=== PATIENT | female | born 1955 | race Caucasian/White ===

== ENCOUNTER → 2024-02-02 | Outpatient (CLI) | payer BC, SELFPAY ==
[2024-02-02 15:22] LABS: Absolute Neutrophil Count 5.9 X10^3/uL (2.0-7.7); Basophil# 0.07 X10^3/uL; Basophil% 0.7 % (0-1); Eosinophil# 0.16 X10^3/uL; Eosinophils% 1.7 % (0-5); Hematocrit 42.6 % (37-47); Hemoglobin 13.8 g/dL (12.0-15.0); Mean Corp Hgb Conc 32.4 g/dL (32-36); Mean Corpuscular Hgb 30.8 pg (27.0-32.0); Mean Corpuscular Volume 95.1 fL (81-99); Mean Platelet Vol. 11.7 fl (6.2-12.0); Monocyte# 0.76 X10^3/uL; Monocyte% 7.9 % (0-10); NRBC Flagged by Analyzer 0 % (0-5); Neutrophil # 5.91 X10^3/uL (2.7-7.7); Neutrophil % 61.3 % (47-70); Platelet Count 247 K/mm3 (150-450); RBC Distribution Width CV 12.6 % (11.6-14.6); Red Blood Count 4.48 M/mm3 (4.2-5.4); White Blood Count 9.6 K/mm3 (4.4-11.0)
[2024-02-02 16:27] LABS: ALB/GLOB Ratio 1.1 RATIO (0.9-2.4); AST(SGOT) 24 U/L (15-37); Alanine Aminotransfer ALT/SGPT 34 U/L (13-56); Alkaline Phosphatase 121 U/L (45-117); Anion Gap 3 (5-15); BUN 17 mg/dL (7-18); BUN/Creat Ratio 19.1 RATIO (10-20); Calcium,Total 9.5 mg/dL (8.5-10.1); Chloride 106 mmol/L (98-107); Cholesterol 236 mg/dL (200); Creatinine, Serum 0.89 mg/dL (0.55-1.02); EST Glomerular Filtration Rate 67 mL/min (>60); Est Glom Filt Rate - Afr Amer 81 mL/min (>60); Globulin 3.6 g/dL (2.2-4.2); Glucose 86 mg/dL (74-106); High Density Lipoprotein 74 mg/dL; Potassium 5.4 mmol/L (3.5-5.1); Protein, Total 7.6 g/dL (6.4-8.2); Sodium Level 138 mmol/L (136-145); T4 Free Direct 1.03 ng/dL (0.76-1.46); Thyroid Stim Hormone (TSH) 2.19 uIU/mL (0.358-3.74); Triglycerides 115 mg/dL; Very Low Density Lipoprotein 23 mg/dL (5-40)
== END | disposition home or self-care (01) ==
LOC: BIMLAB 14:08
PROVIDERS: PCP Internal Medicine; Visit Provider Internal Medicine
DX: I10 Essential (primary) hypertension (principal); K52.9 Noninfective gastroenteritis and colitis, unspecified
CPT/HCPCS: 36415; 80053; 80061; 84439; 84443; 85025

== ENCOUNTER → 2024-07-02 | Outpatient (CLI) | payer BC, SELFPAY ==
[2024-07-02 15:24] LABS: QC Malaria Lot#/Exp Date RECORD LOT#/EXP DATE
[2024-07-02 16:52] LABS: Absolute Lymphocyte Count 2.75 X10^3/uL (0.83-4.51); Absolute Neutrophil Count 7.6 X10^3/uL (2.0-7.7); Basophil# 0.08 X10^3/uL; Basophil% 0.7 % (0-1); Eosinophil# 0.07 X10^3/uL; Eosinophils% 0.6 % (0-5); Hematocrit 43.7 % (37-47); Hemoglobin 13.9 g/dL (12.0-15.0); Lymphocyte # 2.75 X10^3/ul (0.83-4.51); Lymphocyte % 23.7 % (19-41); Mean Corp Hgb Conc 31.8 g/dL (32-36); Mean Corpuscular Hgb 29.2 pg (27.0-32.0); Mean Corpuscular Volume 91.8 fL (81-99); Mean Platelet Vol. 12.2 fl (6.2-12.0); Monocyte# 0.95 X10^3/uL; Monocyte% 8.2 % (0-10); NRBC Flagged by Analyzer 0 % (0-5); Neutrophil # 7.57 X10^3/uL (2.7-7.7); Neutrophil % 65.1 % (47-70); Platelet Count 293 K/mm3 (150-450); RBC Distribution Width CV 13.2 % (11.6-14.6); RBC Distribution Width SD 44.9 fl (35.1-43.9); Red Blood Count 4.76 M/mm3 (4.2-5.4); White Blood Count 11.6 K/mm3 (4.4-11.0)
[2024-07-02 17:09] LABS: AST(SGOT) 32 U/L (15-37); Alanine Aminotransfer ALT/SGPT 50 U/L (13-56); Albumin, Serum 3.5 g/dL (3.2-5.0); Alkaline Phosphatase 135 U/L (45-117); Anion Gap 5 (5-15); BUN 14 mg/dL (7-18); BUN/Creat Ratio 16.8 RATIO (10-20); Calcium,Total 9.3 mg/dL (8.5-10.1); Chloride 114 mmol/L (98-107); Creatinine, Serum 0.83 mg/dL (0.55-1.02); EST Glomerular Filtration Rate 72 mL/min (>60); Est Glom Filt Rate - Afr Amer 87 mL/min (>60); Globulin 3.5 g/dL (2.2-4.2); Glucose 107 mg/dL (74-106); Sodium Level 141 mmol/L (136-145)
[2024-07-05 11:20] LABS: Pathologist Review Reviewed
[2024-07-05 14:08] LABS: Giardia Lamblia, Stool EIA Positive (Negative)
[2024-07-08 14:24] LABS: Malaria QC Review PASSED
== END | disposition home or self-care (01) ==
LOC: BIMLAB 15:22
PROVIDERS: PCP Internal Medicine; Referring Provider Nurse Practitioner; Visit Provider Nurse Practitioner
DX: R19.7 Diarrhea, unspecified (principal); K58.9 Irritable bowel syndrome, unspecified
CPT/HCPCS: 36415; 80053; 85025; 87207; 87329; 87493; 87506

== ENCOUNTER → 2024-07-29 | Outpatient (CLI) | payer BC, SELFPAY ==
[2024-07-29 17:14] LABS: Absolute Lymphocyte Count 2.69 X10^3/uL (0.83-4.51); Absolute Neutrophil Count 4.3 X10^3/uL (2.0-7.7); Basophil# 0.05 X10^3/uL; Basophil% 0.6 % (0-1); Eosinophil# 0.12 X10^3/uL; Eosinophils% 1.5 % (0-5); Hematocrit 41.6 % (37-47); Lymphocyte # 2.69 X10^3/ul (0.83-4.51); Lymphocyte % 34.1 % (19-41); Mean Corp Hgb Conc 31.3 g/dL (32-36); Mean Corpuscular Hgb 29.3 pg (27.0-32.0); Mean Corpuscular Volume 93.7 fL (81-99); Mean Platelet Vol. 12.1 fl (6.2-12.0); Monocyte# 0.77 X10^3/uL; Monocyte% 9.7 % (0-10); NRBC Flagged by Analyzer 0 % (0-5); Neutrophil # 4.25 X10^3/uL (2.7-7.7); Neutrophil % 53.8 % (47-70); Platelet Count 253 K/mm3 (150-450); RBC Distribution Width CV 13.5 % (11.6-14.6); RBC Distribution Width SD 46.2 fl (35.1-43.9); Red Blood Count 4.44 M/mm3 (4.2-5.4); White Blood Count 7.9 K/mm3 (4.4-11.0)
[2024-07-29 17:39] LABS: ALB/GLOB Ratio 1.1 RATIO (0.9-2.4); AST(SGOT) 26 U/L (15-37); Alanine Aminotransfer ALT/SGPT 37 U/L (13-56); Albumin, Serum 3.9 g/dL (3.2-5.0); Alkaline Phosphatase 107 U/L (45-117); Anion Gap 5 (5-15); BUN 18 mg/dL (7-18); BUN/Creat Ratio 23.7 RATIO (10-20); Calcium,Total 9.5 mg/dL (8.5-10.1); Chloride 108 mmol/L (98-107); Cholesterol 192 mg/dL (200); Creatinine, Serum 0.76 mg/dL (0.55-1.02); EST Glomerular Filtration Rate 80 mL/min (>60); Est Glom Filt Rate - Afr Amer 97 mL/min (>60); Globulin 3.4 g/dL (2.2-4.2); Glucose 90 mg/dL (74-106); High Density Lipoprotein 68 mg/dL; Potassium 3.8 mmol/L (3.5-5.1); Protein, Total 7.3 g/dL (6.4-8.2); Sodium Level 140 mmol/L (136-145); Triglycerides 119 mg/dL; Very Low Density Lipoprotein 24 mg/dL (5-40)
== END | disposition home or self-care (01) ==
LOC: BIMLAB 14:47
PROVIDERS: PCP Internal Medicine; Referring Provider Internal Medicine; Visit Provider Internal Medicine
DX: I10 Essential (primary) hypertension (principal); R19.7 Diarrhea, unspecified; A07.1 Giardiasis [lambliasis]
CPT/HCPCS: 36415; 80053; 80061; 85025

== ENCOUNTER → 2024-07-30 | Outpatient (CLI) | payer BC, SELFPAY ==
[2024-08-03 16:10] LABS: Calprotectin, Stool 19 ug/g (0-120)
== END | disposition home or self-care (01) ==
LOC: LABSPEC 13:21
PROVIDERS: PCP Internal Medicine; Referring Provider Internal Medicine; Visit Provider Internal Medicine
DX: K58.9 Irritable bowel syndrome, unspecified (principal); R19.7 Diarrhea, unspecified
CPT/HCPCS: 83630; 83993; 87177; 87209; 87329; 87506

== ENCOUNTER → 2025-06-10 | Outpatient (CLI) | payer BC, SELFPAY ==
[2025-06-10 16:05] LABS: Mucous, Urine 0 SEEN /hpf (<or=2+)
[2025-06-10 16:46] LABS: Color, Urine Yellow (Yellow); Glucose, Dipstick Normal (Normal); Ketone-Dipstick Negative (Negative); Leukocyte Esterase-Dipstick 25 /ul (Negative); Nitrite-Dipstick Negative (Negative); Occult Blood-Urine Negative /ul (Negative); Protein-Dipstick 30 mg/dl (Negative); Specific Gravity, Urine 1.025 (1.002-1.030); Urine Bilirubin Dipstick Negative (Negative)
[2025-06-10 17:58] LABS: Red Blood Cells-Urine 0-5 SEEN /hpf (0-5); Squamous Epithelial Cells - UA 0-5 SEEN /hpf (5-10)
--- OUTSIDE RECORDS SUMMARY | 2025-06-10 18:05 | XMS RPT_ITS | CCD ---
Author Organization [facility] Care Team Providers Care Cloth Mercerizer Back Tender Name Role Phone Dr. Kindra Jimenez Primary Care Provider [phone] Dr. Kindra Jimenez Attending Provider [phone] Dr. Kindra Jimenez Referring Provider [phone] Oleghe, Efewongbe Referring Unavailable Oleghe, Efewongbe Primary Care Unavailable Oleghe, Efewongbe Attending Unavailable Oleghe, Efewongbe Referring Unavailable Oleghe, Efewongbe Primary Care Unavailable Oleghe, Efewongbe Attending Unavailable Oleghe, Efewongbe Referring Unavailable Ferullo, Zoe Attending Unavailable Oleghe, Efewongbe Primary Care Unavailable Oleghe, Efewongbe Primary Care Unavailable Oleghe, Efewongbe Referring Unavailable Oleghe, Efewongbe Attending Unavailable Oleghe, Efewongbe Referring Unavailable Oleghe, Efewongbe Primary Care Unavailable Dave Saez Attending Unavailable Oleghe, Efewongbe Attending Unavailable Oleghe, Efewongbe Primary Care Unavailable Oleghe, Efewongbe Referring Unavailable Oleghe, Efewongbe Referring Unavailable Oleghe, Efewongbe Attending Unavailable Oleghe, Efewongbe Primary Care Unavailable Ferullo, Zoe Referring Unavailable Ferullo, Zoe Attending Unavailable Oleghe, Efewongbe Primary Care Unavailable Oleghe, Efewongbe Referring Unavailable Oleghe, Efewongbe Attending Unavailable Oleghe, Efewongbe Primary Care Unavailable Luisghe Dr. Kindra HOFF Primary Care Provider Dr. Kindra Jimenez MD Attending Provider [phone] Dr. Kindra Jimenez MD Referring Provider Medications Current Medications Medication Drug Class(es) Dates Sig (Normalized) Sig (Original) baclofen 10 mg oral tablet (1 source) gamma-Aminobutyric Acid-ergic Agonist Start: 5 take 1 tablet by mouth twice daily as needed for muscle spasms Baclofen 10 mg tablet Active 10 mg PO TWICE A DAY as needed for muscle spasm 30 0 June 10, 2025 12:00am DULoxetine 30 mg delayed release oral capsule (1 source) Serotonin and Norepinephrine Reuptake Inhibitor Start: 5 take 1 capsule by mouth once daily Duloxetine 30 mg capsule,delayed release(DR/EC) Active 30 mg PO daily June 10, 2025 12:00am gabapentin 300 mg oral capsule (1 source) Anti-epileptic Agent Start: 5 take 1 capsule by mouth three times daily Gabapentin 300 mg capsule Active 300 mg PO THREE TIMES A DAY June 10, 2025 12:00am methylPREDNISolone 4 mg oral tablet (1 source) Corticosteroid Start: 5 take 1 tablet by mouth once Methylprednisolone (Medrol (Bebeto)) 4 mg tablets,dose pack Active 0 PO per package directions 21 0 June 10, 2025 12:00am PO PER PKG DIR for 6 days mirtazapine 15 mg oral tablet (1 source) Start: 5 take 1 tablet by mouth once daily Mirtazapine (Remeron) 15 mg tablet Active 15 mg PO daily June 10, 2025 12:00am omeprazole 20 mg delayed release oral capsule (5 sources) Proton Pump Inhibitor Start: 3 End: 4 take 1 capsule by mouth once daily Omeprazole 20 mg capsule,delayed release(DR/EC) Active 20 mg PO DAILY 90 90 1 May 10, 2024 3:47pm Start: 07-10-2023 Omeprazole Act walt MG PO July 10, 2023 12:00am Psyllium (5 sources) Start: 02-24-2025 metamucil Acti ve PO as needed February 24, 2025 2:01pm pt states that she take metamucil tablets for upset stomach unsure of strength Start: 02-02-2024 End: 02-24-2025 metamucil Discontinued PO Ap ril 2023 12:00am February 24, 2025 2:01pm pt states that she take metamucil tablets for upset stomach unsure of strength Start: 02-02-2024 metamucil Acti ve PO February 02, 2024 12:00am pt states that she take metamucil tablets for upset stomach unsure of strength QUEtiapine 100 mg oral tablet (1 source) Atypical Antipsychotic Start: 06-10-2025 take 1 tablet by mouth at bedtime Quetiapine (Seroquel) 100 mg tablet Active 100 mg PO AT BEDTIME June 10, 2025 12:00am traZODone hydrochloride 50 mg oral tablet (1 source) Serotonin Reuptake Inhibitor Start: 06-10-2025 take 1 tablet by mouth once daily Trazodone 50 mg tablet Active 50 mg PO daily June 10, 2025 12:00am Completed/Discontinued Medications Medication Drug Class(es) Dates Sig (Normalized) Sig (Original) Lactobacillus Combination No.9 (Adult 50 Plus Probiotic) 4 billion cell capsule (3 sources) Start: 07-10-2023 End: 02-02-2024 take 4 capsules by mouth once daily Lactobacillus Combination No.9 (Adult 50 Plus Probiotic) 4 billion cell capsule Discontinued 4000 NMA PO DAILY July 10, 2023 12:00am February 02, 2024 1:07pm administer with a meal Start: 07-10-2023 End: 02-02-2024 take 4 capsules by mouth once daily Lactobacillus Combination No.9 (Adult 50 Plus Probiotic) 4 billion cell capsule Discontinued 4000 MMU CELLS PO DAILY July 10, 2023 12:00am February 02, 2024 1:07pm administer with a meal lisinopril 20 mg oral tablet (10 sources) Angiotensin Converting Enzyme Inhibitor Start: 11-28-2023 End: 09-29-2024 take 1 tablet by mouth once daily Lisinopril 20 mg tablet Discontinued 20 mg PO DAILY 90 1 February 27, 2024 9:53am September 29, 2024 1:19pm Start: 07-10-2023 End: 10-09-2023 Lisinopril 20 mg tablet Disc ontinued mg PO July 10, 2023 12:00am October 09, 2023 3:33pm Start: 07-10-2023 End: 10-09-2023 Lisinopril Discontinued MG P O July 10, 2023 12:00am October 09, 2023 3:33pm tinidazole 500 mg oral tablet (2 sources) Nitroimidazole Antimicrobial Start: 07-05-2024 End: 07-29-2024 take 1 tablet by mouth once Tinidazole 500 mg tablet Discontinued 2 g PO ONCE 4 0 July 05, 2024 12:00am July 29, 2024 2:11pm 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] trospium chloride 20 mg oral tablet (15 sources) Cholinergic Muscarinic Antagonist Start: 07-10-2023 End: 11-28-2023 take 1 tablet by mouth once daily Trospium 20 mg tablet Discontinued 20 mg PO DAILY 60 1 November 28, 2023 5:45pm November 28, 2023 5:46pm Start: 07-10-2023 End: 09-27-2024 take 1 tablet by mouth twice daily Trospium 20 mg tablet Discontinued 20 mg PO TWICE A DAY 180 0 June 23, 2024 1:06pm September 27, 2024 6:12pm Start: 07-10-2023 End: 11-28-2023 Trospium Discontinued MG PO July 10, 2023 12:00am November 28, 2023 5:45pm Problems Active Problems Problem Classification Problem Date Documented Da te Episodic/Chronic Abdominal pain (2 sources) Right inguinal pain; Translations: [Right lower quadrant pain] 06-10-2025 Episodic Adjustment disorders (3 sources) Grief finding; Translations: [Adjustment disorder with depressed mood] 07-10-2023 Chronic Cardiac dysrhythmias (4 sources) Premature atrial contraction; Translations: [Atrial premature depolarization] 02-02-2024 Chronic Esophageal disorders (6 sources) Gastroesophageal reflux disease; Translations: [Gastro-esophageal reflux disease without esophagitis] 07-10-2023 Chronic Essential hypertension (7 sources) Hypertensive disorder; Translations: [Essential (primary) hypertension] Onset: 4 07-10-2023 Chronic Fluid and electrolyte disorders (3 sources) Hyperkalemia; Translations: [Hyperkalemia] 02-02-2024 Episodic Intestinal infection (3 sources) Giardiasis; Translations: [Giardiasis [lambliasis]] Onset: 4 07-05-2024 Episodic Noninfectious gastroenteritis (3 sources) Chronic diarrhea; Translations: [Noninfective gastroenteritis and colitis, unspecified] 07-10-2023 Episodic Other diseases of bladder and urethra (5 sources) Overactive bladder; Translations: [Overactive bladder] 07-10-2023 Chronic Other diseases of bladder and urethra (1 source) Overactive bladder; Translations: [Hypertonicity of bladder] 02-02-2024 Chronic Other gastrointestinal disorders (2 sources) Irritable bowel syndrome without diarrhea; Translations: [Irritable bowel syndrome, unspecified] Onset: Chronic Other gastrointestinal disorders (2 sources) Diarrhea; Translations: [Diarrhea, unspecified] 07-02-2024 Episodic Other nervous system disorders (3 sources) Complex regional pain syndrome; Translations: [Complex regional pain syndrome] 07-10-2023 Chronic Other upper respiratory infections (4 sources) Sinusitis; Translations: [Chronic sinusitis, unspecified] 02-02-2024 Chronic Spondylosis; intervertebral disc disorders; other back problems (2 sources) Chronic back pain ; Translations: [Dorsalgia, unspecified] 06-10-2025 Episodic Past or Other Problems Problem Classification Problem Date Documented Da te Episodic/Chronic Other gastrointestinal disorders (1 source) Diarrhea, unspecified; Translations: [Diarrhea, unspecified] Onset: 07-29-2024 Episodic Results Test Name Value Interpretation Reference Range Facility Internal Medicine Office Vis jo 02-24-2025 Internal Medicine Office Visit [facility] [address] [place] [address] OFFICE VISIT Date of Service: 02/24/25 MR#: [id number] Acct: [id number] Name: KATE SMITH Rep #: [id number] : 1955 Provider: Dr. Kindra chandler MD Age/Sex: 70/F Location: [facility] [place] Status: Signed Intake Vital Signs 10/27/24 15:14 02/24/25 14:02 Height 5 ft 5 in 5 ft 4 in Weight: 157 lb BMI 26.9 BP 118/66 Blood Pressure Location Lt brachial Position Sitting Respiration 18 Pulse 94 Pulse Source Monitor Temp 97.8 F Temp Source Temporal Pulse Oximetry (%) 96 Oxygen Delivery Method room air Intake Visit Reasons: 4 M FU Chief Complaint: 4 M FU Is patient in pain?: No Allergies No Known Allergies Allergy (Unverified 02/24/25 14:00) Medications ???Medication ???Instructions ???Recorded ???Confirmed ???Type omeprazole 20 mg capsule,delayed 20 mg PO DAILY 90 days #90 caps 02/24/25 Rx release trospium 20 mg tablet 20 mg PO BID #180 tabs 09/27/24 Rx lisinopril 20 mg tablet 20 mg PO DAILY #90 TABLETS 4 02/24/25 Rx metamucil PO PRN 02/24/25 History Have you fallen in the past year?: Yes (x1 fell off of couch after nightmare) [facility] Medical History Diarrhea Hyperkalemia PAC (premature atrial contraction) Sinusitis Health care maintenance Complex regional pain syndrome GERD (gastroesophageal reflux disease) OAB (overactive bladder) Grief reaction Chronic diarrhea Hypertension Surgical History Hx of cholecystectomy History of appendectomy History of ankle surgery Family History Sister , 09/10 cancer lung, brain No problems noted. Mother , 06/2023 bones,liver kidney ca No problems noted. Social History adopted: No current occupational status: unemployed pets and animals: Yes pets and animals: dog(s) sexually active: No Smoking Status: Never smoker alcohol intake: never substance use type: does not use caffeine: Yes (1-2) Type: coffee seatbelt use: always do you feel safe at home: Yes HPI HPI Chief Complaint: 4 M FU Details: KATE SMITH, is a 70 F who presents to the office today for follow-up of her chronic medical conditions. No acute concerns at this time. History of hypertension, blood pressure today at 118/66 mmHg. Has been taking her medication consistently. Does not routinely check her blood pressure at home. No chest pain, palpitation, lightheadedness, syncopal or near syncopal episodes. Feels well. Also chronic history of reflux currently on omeprazole. She states that she has been on this for many years. Occasionally misses a dose and does not note worsening symptoms when she does. No dark or bloody stool or unintentional weight changes. Other chronic medical conditions are stable. ROS Const Constitutional: No body ache, chills, excessive sweating, fatigue, fever(s), frequent falls, headache(s), snoring, weight change, sleep problems, abnormal sleep pattern or change in appetite Eyes Eyes: No blurry vision, change in vision, bulging eyes, floaters, visual disturbances, eye pain or Light sensitivity ENT ENT: No abnormal hearing, ear or mastoid pain, tinnitus, balance problems, nosebleed/epistaxis, nasal congestion, headache(s), neck pain or sore throat Resp Respiratory: No cough, excessive phlegm production, pain on inspiration, shortness of breath, snoring or wheezing Cardio Cardiology: No chest pain at rest, chest pain with exertion, excessive sweating, shortness of breath, dyspnea on exertion, lightheadedness, orthopnea or palpitations Gastro GI: No abdominal pain, change in bowel habits, constipation, cramping, diarrhea, nausea/dyspepsia or vomiting Genitourinary-Female : No burning urination, painful urination, urinary incontinence, urinary frequency, suprapubic fullness, side pain, abnormal vaginal bleeding or pelvic pain Musc Musculoskeletal: No abnormal gait, joint pain, back pain, limited range of motion, loss of height, muscle cramps, neck pain, numbness or tingling Skin Skin: No dry skin, redness, excessive hair growth, yellowing of the eye, lesions, itchy eyes, rash or wounds Neuro Neurology: No abnormal gait, abnormal hearing, behavioral changes, unsteady gait/balance, frequent falls, headache(s), memory loss, numbness, tingling or visual disturbances Psych Psychiatric: No abnormal sleep pattern, No anxiety, No behavioral changes, No change in appetite, No irritability, No memory loss and No Thoughts of harming yourself/Others Endo Endocrine: No cold intolerance, excessive sweating, fatigue, (more content not included)... Normal [facility] Internal Medicine Office Vis jo 10-27-2024 Internal Medicine Office Visit [facility] [address] [place] [address] OFFICE VISIT Date of Service: 10/27/24 MR#: [id number] Acct: [id number] Name: KATE SMITH Rep #: [id number] : 1955 Provider: Dr. Kindra chandler MD Age/Sex: 69/F Location: [facility] [place] Status: Signed Intake Vital Signs 07/29/24 14:12 10/27/24 15:14 Height 5 ft 5 in 5 ft 5 in Weight: 152 lb 155 lb BMI 25.2 25.7 BP 120/82 H 114/82 H Blood Pressure Location Lt brachial Lt brachial Position Sitting Sitting Respiration 14 17 Pulse 77 67 Pulse Source Monitor Monitor Temp 97 F L 97.5 F L Temp Source Temporal Temporal Pulse Oximetry (%) 97 98 Oxygen Delivery Method room air room air Intake Visit Reasons: 3 M FU Chief Complaint: 3 m FU Is patient in pain?: No Allergies No Known Allergies Allergy (Unverified 10/27/24 15:14) Medications ???Medication ???Instructions ???Recorded ???Confirmed ???Type metamucil PO 02/02/24 10/27/24 History omeprazole 20 mg capsule,delayed 20 mg PO DAILY 90 days #90 caps 05/10/24 10/27/24 Rx release trospium 20 mg tablet 20 mg PO BID #180 tabs 09/27/24 10/27/24 Rx lisinopril 20 mg tablet 20 mg PO DAILY #90 TABLETS 09/29/24 10/27/24 Rx Have you fallen in the past year?: No PFSH Medical History Diarrhea Hyperkalemia PAC (premature atrial contraction) Sinusitis Health care maintenance Complex regional pain syndrome GERD (gastroesophageal reflux disease) OAB (overactive bladder) Grief reaction Chronic diarrhea Hypertension Surgical History Hx of cholecystectomy History of appendectomy History of ankle surgery Family History Sister , 09/10 cancer lung, brain No problems noted. Mother , 06/2023 bones,liver kidney ca No problems noted. Social History adopted: No current occupational status: unemployed pets and animals: Yes pets and animals: dog(s) sexually active: No Smoking Status: Never smoker alcohol intake: never substance use type: does not use caffeine: Yes (1-2) Type: coffee seatbelt use: always do you feel safe at home: Yes HPI HPI Chief Complaint: 3 m FU Details: KATE SMITH, is a 69 F who presents to the office today for follow-up of her chronic medical conditions. No acute concerns at this time. History of hypertension, she states that she has not taken her medication in a month. Initial blood pressure was 114/82 however repeat was 180/90. Does not routinely check her numbers at home. No chest pain, palpitation or shortness of breath. She states that she has had an occasional headache. Other chronic medical conditions are stable. Feels well overall. ROS Const Constitutional: No body ache, chills, excessive sweating, fatigue, fever(s), frequent falls, headache(s), snoring, weakness or change in appetite Eyes Eyes: No blurry vision, change in vision, bulging eyes, visual disturbances, eye pain or Light sensitivity ENT ENT: No abnormal hearing, ear or mastoid pain, tinnitus, balance problems, nosebleed/epistaxis, nasal congestion, headache(s), neck pain or sore throat Resp Respiratory: No cough, excessive phlegm production, pain on inspiration, shortness of breath, snoring or wheezing Cardio Cardiology: No chest pain at rest, chest pain with exertion, excessive sweating, dyspnea on exertion, lightheadedness, orthopnea or palpitations Gastro GI: No abdominal pain, change in bowel habits, constipation, cramping, diarrhea, nausea/dyspepsia or vomiting Genitourinary-Female : No burning urination, painful urination, urinary incontinence or urinary frequency Musc Musculoskeletal: No abnormal gait, joint pain, back pain, limited range of motion, muscle weakness, neck pain or numbness Skin Skin: No dry skin, redness, excessive hair growth, yellowing of the eye, lesions, itchy eyes, rash or wounds Neuro Neurology: No abnormal gait, abnormal hearing, behavioral changes, unsteady gait/balance, weakness, frequent falls, headache(s), memory loss, numbness or visual disturbances Psych Psychiatric: No anxiety, No behavioral changes, No change in appetite, No depression, No memory loss and No Thoughts of harming yourself/Others Endo Endocrine: No cold intolerance, excessive sweating, fatigue, flushing, heat intolerance, increased thirst/drinking or increased hunger Aller/Imm Allergy/Immunologic: No itchy eyes, seasonal allergy symptoms, hives or wheezing Henok/Lymp Hematologic/Lymphati c: No easy bleeding or easy bruising Exam Const General: cooperative, comfortable and no acute distress Orientation: alert, awake and oriented x3 HENMT Head: normal t (more content not included)... [facility] M7400.3302on 08-10-2024 M7400.3302 TESTING PERFORMED AT [facility]. ORIGINAL REPORT ON FILE IN LAB CONTAINS ADDITIONAL TEST SITE INFORMATION. Giardia Lamblia EIA Performing Labs 01: [address] [address] Dir: Roberto Calix, PhD For inquiries, the physician may contact Branch: [phone] Lab: [phone] Giardia Lamblia EIA NEGATIVE [facility] Comment on above: Performed By: #### M 600.5000, L7000.0700, M100.637, M7400.3302, M100.0605 ####[facility] [id number] [place], [place], [address] Ova and Parasites 4300uq OP OVA AND PARASITES EXAM, ROUTINE These results were obtained using wet preparation(s) and trichrome stained smear. This test does not include testing for Crytosporidium parvum, Cyclospora, or Microsporidia. One negative specimen does not rule out the possibility of a parasitic infection. TESTING PERFORMED AT [facility]. ORIGINAL REPORT ON FILE IN LAB CONTAINS ADDITIONAL TEST SITE INFORMATION. Performing Labs 01: [facility], [address] [place] [id number] Dir: Roberto Calix, PhD For inquiries, the physician may contact Branch: [phone] Lab: [phone] Ova/Parasite Exam NO OVA, CYSTS, OR PARASITES FOUND. OP Antimicrobial Sofi O P Antimicrobial Susceptibility Ova/Parasite Result 3 NO OVA, CYSTS, OR PARASITES FOUND. Ova/Parasite Result 4 O P Result 4: Ova/Parasite Result 2 O P Result 2: Ova/Parasite Result 1 1 Normal [facility] Comment on above: Performed By: #### M 600.5000, L7000.0700, M100.637, M7400.3302, M100.0605 ####[facility] [id number] [place], [place], [id number] Calprotectin, Stoolon [address] 19 ug/g Normal 0-120 [facility] Comment on above: Result Comment: Conc entration Interpretation Follow-Up < 5 - 50 ug/g Normal None >50 -120 ug/g Borderline Re-evaluate in 4-6 weeks >120 ug/g Abnormal Repeat as clinically indicated Performed at: [address] [id number] Electrotype Servicer: Rona Mason MD, Phone: [phone] Performed By: #### M 600.5000, L7000.0700, M100.637, M7400.3302, M100.0605 ####[facility] [id number] [place], [address] ENTERIC PATHOGEN PANEL STOOL on 07-31-2024 EP PANEL Normal Reference Range = Not Detected GI pathogens Pnl Stl NEGRITA+probe Nucleic acid amplification test method GI pathogens Pnl Stl NEGRITA+probe Not detected for Campylobacter group, Salmonella species, Shigella species, Vibrio Group, Yersinia enterocolitica, EHEC (Shiga Toxin 1, Shiga Toxin 2), Norovirus Gl/Gll, and Rotavirus A. Other common stool pathogens are not detected on this panel include: Aeromonas/Plesiomona s or parasites. Order testing for these organisms separately if suspected. This is an amplified DNA test which makes it both specific and sensitive. CAMPYLOBACTER Not Detected Norovirus Not Detected Rotavirus Not Detected Salmonella Not Detected Shiga Toxin Not Detected Shigella sp. Not Detected VIBRIO Not Detected Yersinia Not Detected Normal [facility] Comment on above: Performed By: #### M 600.5000, L7000.0700, M100.637, M7400.3302, M100.0605 ####[facility] [id number] [place], [address] Stool Lactoferrin/WBCon 07-13 WBCST Normal Reference Range = Negative Fecal WBC Lactoferrin Negative: No Fecal WBC Lactoferrin present Normal [facility] Comment on above: Performed By: #### M 600.5000, L7000.0700, M100.637, M7400.3302, M100.0605 ####[facility] [id number] [place], [address] CBC W/Diff, Automatedon - Absolute Lymph 2.69 X10 3/uL Normal 0.83-4.51 [facility] Comment on above: Performed By: #### L 500.4050, L500.4100, L100.0100 #### [facility] [address] [place], [address] Absolute Neut 4.3 X10 3/uL Normal 2.0-7.7 [facility] Comment on above: Performed By: #### L 500.4050, L500.4100, L100.0100 #### [facility] [address] [place], [address] Basophils/100 WBC (Bld) 0.6 % Normal 0-1 [facility] Comment on above: Performed By: #### L 500.4050, L500.4100, L100.0100 #### [facility] [address] [place], [address] Eosinophils/100 WBC (Bld) 1.5 % Normal 0-5 [facility] Comment on above: Performed By: #### L 500.4050, L500.4100, L100.0100 #### [facility] [address] [place], [address] Erythrocyte distribution width (RBC) [Ratio] 13.5 % Normal 11.6-14.6 [facility] Comment on above: Performed By: #### L 500.4050, L500.4100, L100.0100 #### [facility] [address] [place], [address] Hematocrit (Bld) [Volume fraction] 41.6 % Normal 37-47 [facility] Comment on above: Performed By: #### L 500.4050, L500.4100, L100.0100 #### [facility] [address] [place], [address] Hemoglobin (Bld) [Mass/Vol] 13.0 g/dL Normal 12.0-15.0 [facility] Comment on above: Performed By: #### L 500.4050, L500.4100, L100.0100 #### [facility] [address] [place], [address] IG% 0.300 Normal 0.0-0.9 [facility] Comment on above: Result Comment: IG% - Immature Granulocytes (promyelocytes, myelocytes and metamyelocytes) > 1% indicates that a LEFT SHIFT is Present. Performed By: #### L 500.4050, L500.4100, L100.0100 #### [facility] [address] [place], [address] Lymphocytes/100 WBC (Bld) 34.1 % Normal 19-41 [facility] Comment on above: Performed By: #### L 500.4050, L500.4100, L100.0100 #### [facility] [address] [place], [address] MCH (RBC) [Entitic mass] 29.3 pg Normal 27.0-32.0 [facility] Comment on above: Performed By: #### L 500.4050, L500.4100, L100.0100 #### [facility] [address] [place], [address] MCHC (RBC) [Mass/Vol] 31.3 g/dL Low 32-36 [facility] Comment on above: Performed By: #### L 500.4050, L500.4100, L100.0100 #### [facility] [address] [place], [address] MCV (RBC) [Entitic vol] 93.7 fL Normal 81-99 [facility] Comment on above: Performed By: #### L 500.4050, L500.4100, L100.0100 #### [facility] [facility] [address] [place], [address] Monocytes/100 WBC (Bld) 9.7 % Normal 0-10 [facility] Comment on above: Performed By: #### L 500.4050, L500.4100, L100.0100 #### [facility] [address] [place], [address] Neutrophils/100 WBC (Bld) 53.8 % Normal 47-70 [facility] Comment on above: Performed By: #### L 500.4050, L500.4100, L100.0100 #### [facility] [address] [place], [address] Nucleated RBC (Bld) [#/Vol] 0 10*3/uL Normal 0-5 [facility] Comment on above: Performed By: #### L 500.4050, L500.4100, L100.0100 #### [facility] [address] [place], [address] Platelet mean volume (Bld) [Entitic vol] 12.1 fL High 6.2-12.0 [facility] Comment on above: Performed By: #### L 500.4050, L500.4100, L100.0100 #### [facility] [address] [place], [address] Platelets (Bld) [#/Vol] 253 10*3/uL Normal 150-450 [facility] Comment on above: Performed By: #### L 500.4050, L500.4100, L100.0100 #### [facility] [address] [place], [address] RBC (Bld) [#/Vol] 4.44 10*6/uL Normal 4.2-5.4 [facility] Comment on above: Performed By: #### L 500.4050, L500.4100, L100.0100 #### [facility] [address] [place], [address] RDW SD 46.2 fl High 35.1-43.9 [facility] Comment on above: Performed By: #### L 500.4050, L500.4100, L100.0100 #### [facility] [address] [place], [address] WBC (Bld) [#/Vol] 7.9 10*3/uL Normal 4.4-11.0 [facility] Comment on above: Performed By: #### L 500.4050, L500.4100, L100.0100 #### [facility] [address] [place], [address] Comprehensive Metabolic [facility] ilon 07-29-2024 Albumin [Mass/Vol] 3.9 g/dL Normal 3.2-5.0 [facility] Comment on above: Performed By: #### L 500.4050, L500.4100, L100.0100 #### [facility] [address] [place], [address] Albumin/Globulin [Mass ratio] 1.1 {ratio} Normal 0.9-2.4 [facility] Comment on above: Performed By: #### L 500.4050, L500.4100, L100.0100 #### [facility] [address] [place], [address] ALK P 107 U/L Normal 45-117 [facility] Comment on above: Performed By: #### L 500.4050, L500.4100, L100.0100 #### [facility] [address] [place], [address] ALT [Catalytic activity/Vol] 37 U/L Normal 13-56 [facility] Comment on above: Performed By: #### L 500.4050, L500.4100, L100.0100 #### [facility] [address] [place], [address] AST [Catalytic activity/Vol] 26 U/L Normal 15-37 [facility] Comment on above: Performed By: #### L 500.4050, L500.4100, L100.0100 #### [facility] [address] [place], [address] Bilirubin [Mass/Vol] 0.50 mg/dL Normal 0.20-1.00 [facility] Comment on above: Result Comment: For patients on eltrombopag therapy, use of Dimension [place] TBIL is not recommended. Performed By: #### L 500.4050, L500.4100, L100.0100 #### [facility] [address] [place], [address] BUN/CRE 23.7 RATIO High 10-20 [facility] Comment on above: Performed By: #### L 500.4050, L500.4100, L100.0100 #### [facility] [address] [place], [address] CA,Total 9.5 mg/dL Normal 8.5-10.1 [facility] Comment on above: Performed By: #### L 500.4050, L500.4100, L100.0100 #### [facility] [address] [place], [address] Chloride [Moles/Vol] 108 mmol/L High 98-107 [facility] Comment on above: Performed By: #### L 500.4050, L500.4100, L100.0100 #### [facility] [address] [place], [address] CO2 [Moles/Vol] 27.0 mmol/L Normal 21.0-32.0 [facility] Comment on above: Performed By: #### L 500.4050, L500.4100, L100.0100 #### [facility] [address] [place], [address] Creatinine [Mass/Vol] 0.76 mg/dL Normal 0.55-1.02 [facility] Comment on above: Result Comment: The validity of the calculated GFR GFRAA in patients over 70 years has not been determined. Clinical correlation is essential. Performed By: #### L 500.4050, L500.4100, L100.0100 #### [facility] [address] [place], [address] EST GFR - AA 97 mL/min Normal >60 [facility] Comment on above: Result Comment: Afri can [place]ritrean GFR Calc Performed By: #### L 500.4050, L500.4100, L100.0100 #### [facility] [address] [place], [address] GAP 5 Normal 5-15 [facility] Comment on above: Performed By: #### L 500.4050, L500.4100, L100.0100 #### [facility] [address] [place], [address] GFR/1.73 sq M.predicted among non-blacks MDRD (S/P/Bld) [Vol rate/Area] 80 mL/min/{1.73_m2} Normal >60 [facility] Comment on above: Result Comment: Non- GFR Calc Performed By: #### L 500.4050, L500.4100, L100.0100 #### [facility] [address] [place], [address] Globulin (S) [Mass/Vol] 3.4 g/dL Normal 2.2-4.2 [facility] Comment on above: Performed By: #### L 500.4050, L500.4100, L100.0100 #### [facility] [address] [place], [address] Glucose [Mass/Vol] 90 mg/dL Normal 74-106 [facility] Comment on above: Performed By: #### L 500.4050, L500.4100, L100.0100 #### [facility] [address] [place], [address] Potassium [Moles/Vol] 3.8 mmol/L Normal 3.5-5.1 [facility] Comment on above: Performed By: #### L 500.4050, L500.4100, L100.0100 #### [facility] [address] [place], [address] Sodium [Moles/Vol] 140 mmol/L Normal 136-145 [facility] Comment on above: Performed By: #### L 500.4050, L500.4100, L100.0100 #### [facility] [address] [place], [address] T PROT 7.3 g/dL Normal 6.4-8.2 [facility] Comment on above: Performed By: #### L 500.4050, L500.4100, L100.0100 #### [facility] [address] [place], [address] Urea nitrogen [Mass/Vol] 18 mg/dL Normal 7-18 [facility] Comment on above: Performed By: #### L 500.4050, L500.4100, L100.0100 #### [facility] [address] [place], [address] Internal Medicine Office Vis jo 07-29-2024 Internal Medicine Office Visit [facility] [address] [place] [address] [place] [address] OFFICE VISIT Date of Service: 07/29/24 MR#: [id number] Acct: [id number] Name: KATE SMITH Rep #: [id number] : 1955 Provider: Dr. Kindra chandler MD Age/Sex: 69/F Location: [facility] [place] Status: Signed Intake Vital Signs 07/02/24 14:26 07/29/24 14:12 Height 5 ft 5 in 5 ft 5 in Weight: 152 lb BMI 25.2 BP 120/82 H Blood Pressure Location Lt brachial Position Sitting Respiration 14 Pulse 77 Pulse Source Monitor Temp 97 F L Temp Source Temporal Pulse Oximetry (%) 97 Oxygen Delivery Method room air Intake Visit Reasons: FU FROM [facility] Chief Complaint: Follow-up chronic conditions. 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 Is patient in pain?: No Allergies No Known Allergies Allergy (Unverified 07/29/24 14:08) Medications ???Medication ???Instructions ???Recorded ???Confirmed ???Type metamucil PO 02/02/24 07/29/24 History lisinopril 20 mg tablet 20 mg PO DAILY #90 TABLETS 02/27/24 07/29/24 Rx omeprazole 20 mg capsule,delayed 20 mg PO DAILY 90 days #90 caps 05/10/24 07/29/24 Rx release trospium 20 mg tablet 20 mg PO BID #180 tabs 06/23/24 07/29/24 Rx Have you fallen in the past year?: No PFSH Medical History Diarrhea Hyperkalemia PAC (premature atrial contraction) Sinusitis Health care maintenance Complex regional pain syndrome GERD (gastroesophageal reflux disease) OAB (overactive bladder) Grief reaction Chronic diarrhea Hypertension Surgical History Hx of cholecystectomy History of appendectomy History of ankle surgery Family History Sister , 09/10 cancer lung, brain No problems noted. Mother , 06/2023 bones,liver kidney ca No problems noted. Social History adopted: No current occupational status: unemployed pets and animals: Yes pets and animals: dog(s) sexually active: No Smoking Status: Never smoker alcohol intake: never substance use type: does not use caffeine: Yes (1-2) Type: coffee seatbelt use: always do you feel safe at home: Yes HPI HPI Chief Complaint: Follow-up chronic conditions. Details: KATE SMITH, is a 69 F who presents to the office today for follow-up chronic conditions. Also recent episode of diarrhea. Following recent travel and concerns for diarrhea, had stool testing done which was positive for Giardia started on Tinidazole per recommendation and symptoms have improved. Better formed stool but not completely back to normal. Denies abdominal pain. She states that for a few years, she has had some episodes of urgency/diarrhea but these episodes were intermittent until recent episode following a crab meal. This was 2 weeks after she arrived from travel to [facility]. Other chronic medical conditions are stable. History of hypertension on lisinopril. Blood pressure today at 120/82 mmHg. No chest pain, palpitation or shortness of breath. ROS Const Constitutional: No body ache, chills, excessive sweating, fatigue, fever(s), frequent falls, headache(s), snoring, weakness, sleep problems or change in appetite Eyes Eyes: No blurry vision, change in vision, floaters, visual disturbances, eye pain or Light sensitivity ENT ENT: No abnormal hearing, ear or mastoid pain, tinnitus, balance problems, nosebleed/epistaxis, nasal congestion, headache(s), neck pain or sore throat Resp Respiratory: No cough, excessive phlegm production, pain on inspiration, shortness of breath, snoring or wheezing Cardio Cardiology: No chest pain at rest, chest pain with exertion, excessive sweating, shortness of breath, dyspnea on exertion, lightheadedness, orthopnea or palpitations Gastro GI: No abdominal pain, change in bowel habits, constipation, cramping, diarrhea, nausea/dyspepsia or vomiting Genitourinary-Female : No burning urination, painful urination, urinary incontinence, urinary frequency, suprapubic fullness, side pain, abnormal vaginal bleeding or pelvic pain Musc Musculoskeletal: No abnormal gait, joint pain, back pain, limited range of motion, neck pain or numbness Skin Skin: No dry skin, redness, excessive hair growth, yellowing of the eye, lesions, itchy eyes, rash or wounds Neuro Neurology: No abnormal gait, abnormal hearing, behavioral changes, unsteady gait/balance, weakness, frequent falls, headache(s), memory loss, numbness or visual disturbances Psych Psychiatric: No anxiety, No behavioral changes, No change in appetite, No depression, No memory loss and No Thoughts of harming yourself/Others Endo Endocrine: No cold (more content not included)... Normal [facility] Lipid Profileon 07-29-2024 Cholesterol [Mass/Vol] 192 mg/dL Normal 200 [facility] Comment on above: Result Comment: <200 mg/dL Desirable 200-240 mg/dL Borderline >240 mg/dL High Risk Performed By: #### L 500.4050, L500.4100, L100.0100 #### [facility] [address] [place], [address] Cholesterol in HDL [Mass/Vol] 68 mg/dL Normal [facility] Comment on above: Result Comment: The drugs N-Acetylcysteine and Metamizole may falsely depress this assay. Reference Range HDL <40 mg/dL Low HDL Cholesterol HDL >or= 60 mg/dL High HDL Cholesterol Performed By: #### L 500.4050, L500.4100, L100.0100 #### [facility] [address] [place], [address] Cholesterol in LDL [Mass/Vol] 100 mg/dL Normal 0-130 [facility] Comment on above: Performed By: #### L 500.4050, L500.4100, L100.0100 #### [facility] [address] [place], [address] Cholesterol in VLDL [Mass/Vol] 24 mg/dL Normal 5-40 [facility] Comment on above: Performed By: #### L 500.4050, L500.4100, L100.0100 #### [facility] [address] [place], [address] Triglyceride [Mass/Vol] 119 mg/dL Normal [facility] Comment on above: Result Comment: The drugs N-Acetylcysteine and Metamizole may falsely depress this assay. Serum Triglycerides Reference Interval Normal <150 mg/dL Borderline high 150 - 199 mg/dL High 200 - 499 mg/dL Very High > or = 500 mg/dL Performed By: #### L 500.4050, L500.4100, L100.0100 #### [facility] [address] [place], [address] CBC W/Diff, Automatedon 09-2 PATH REV Reviewed Normal [facility] Comment on above: Performed By: #### L 500.4050, L101.0450, L100.0100 #### [facility] [address] [place], [place], [address] Giardia Lamblia, Stool EIAon 07-05-2024 Giardia Stool Positive Abnormal Negative [facility] Comment on above: Result Comment: Perf ormed at: [facility] [id number] Electrotype Servicer: Roberto Calix PhD, Phone: [phone] Performed By: #### M 100637, [id number], L7400.8200 ####[facility] [address] [place], [place], [id number] Malaria,Blood Parasiteson Interpretation Normal Negative [facility] Comment on above: Result Comment: Leuk ocytosis. NEGATIVE FOR MALRIAL PARASITE Akhil Fernández M.D. 07/05/24 Performed By: #### L 500.4050, L101.0450, L100.0100 #### [facility] [address] [place], [place], [id number] ENTERIC PATHOGEN PANEL STOOL on 07-03-2024 EP PANEL Normal Reference Range = Not Detected GI pathogens Pnl Stl NEGRITA+probe Nucleic acid amplification test method GI pathogens Pnl Stl NEGRITA+probe Not detected for Campylobacter group, Salmonella species, Shigella species, Vibrio Group, Yersinia enterocolitica, EHEC (Shiga Toxin 1, Shiga Toxin 2), Norovirus Gl/Gll, and Rotavirus A. Other common stool pathogens are not detected on this panel include: Aeromonas/Plesiomona s or parasites. Order testing for these organisms separately if suspected. This is an amplified DNA test which makes it both specific and sensitive. CAMPYLOBACTER Not Detected Norovirus Not Detected Rotavirus Not Detected Salmonella Not Detected Shiga Toxin Not Detected Shigella sp. Not Detected VIBRIO Not Detected Yersinia Not Detected Normal [facility] Comment on above: Performed By: #### M 100.637, [id number], L7400.3300 ####[facility] [address] [place], [address] CDIFF (PCR)on 07-02-2024 CDIFF Pending [id number] [id number] Presumptive Negative *for epidemiolologic???us e C. Diff PCR Negative- No toxigenic C. Diff Detected Normal [facility] Comment on above: Performed By: #### M 100.637, M100.6796, L7400.3300 ####[facility] [address] [place], [address] Comprehensive Metabolic Prof ilon 07-02-2024 Albumin [Mass/Vol] 3.5 g/dL Normal 3.2-5.0 [facility] Comment on above: Performed By: #### L 500.4050, L101.0450, L100.0100 #### [facility] [address] [place], [address] Albumin/Globulin [Mass ratio] 1.0 {ratio} Normal 0.9-2.4 [facility] Comment on above: Performed By: #### L 500.4050, L101.0450, L100.0100 #### [facility] [address] [place], [address] ALK P 135 U/L High 45-117 [facility] Comment on above: Performed By: #### L 500.4050, L101.0450, L100.0100 #### [facility] [address] [place], [address] ALT [Catalytic activity/Vol] 50 U/L Normal 13-56 [facility] Comment on above: Performed By: #### L 500.4050, L101.0450, L100.0100 #### [facility] [address] [place], [address] AST [Catalytic activity/Vol] 32 U/L Normal 15-37 [facility] Comment on above: Performed By: #### L 500.4050, L101.0450, L100.0100 #### [facility] [address] [place], [address] Bilirubin [Mass/Vol] 0.50 mg/dL Normal 0.20-1.00 [facility] Comment on above: Result Comment: For patients on eltrombopag therapy, use of Dimension [place] TBIL is not recommended. Performed By: #### L 500.4050, L101.0450, L100.0100 #### [facility] [address] [place], [address] BUN/CRE 16.8 RATIO Normal 10-20 [facility] Comment on above: Performed By: #### L 500.4050, L101.0450, L100.0100 #### [facility] [address] [place], [address] CA,Total 9.3 mg/dL Normal 8.5-10.1 [facility] Comment on above: Performed By: #### L 500.4050, L101.0450, L100.0100 #### [facility] [address] [place], [address] Chloride [Moles/Vol] 114 mmol/L High 98-107 [facility] Comment on above: Performed By: #### L 500.4050, L101.0450, L100.0100 #### [facility] [address] [place], [address] CO2 [Moles/Vol] 22.0 mmol/L Normal 21.0-32.0 [facility] Comment on above: Performed By: #### L 500.4050, L101.0450, L100.0100 #### [facility] [address] [place], [address] Creatinine [Mass/Vol] 0.83 mg/dL Normal 0.55-1.02 [facility] Comment on above: Result Comment: The validity of the calculated GFR GFRAA in patients over 70 years has not been determined. Clinical correlation is essential. Performed By: #### L 500.4050, L101.0450, L100.0100 #### [facility] [address] [place], [address] EST GFR - AA 87 mL/min Normal >60 [facility] Comment on above: Result Comment: Afri can Eritrean GFR Calc Performed By: #### L 500.4050, L101.0450, L100.0100 #### [facility] [address] [place], [address] GAP 5 Normal 5-15 [facility] Comment on above: Performed By: #### L 500.4050, L101.0450, L100.0100 #### [facility] [address] [place], [address] GFR/1.73 sq M.predicted among non-blacks MDRD (S/P/Bld) [Vol rate/Area] 72 mL/min/{1.73_m2} Normal >60 [facility] Comment on above: Result Comment: Non- GFR Calc Performed By: #### L 500.4050, L101.0450, L100.0100 #### [facility] [address] [place], [address] Globulin (S) [Mass/Vol] 3.5 g/dL Normal 2.2-4.2 [facility] Comment on above: Performed By: #### L 500.4050, L101.0450, L100.0100 #### [facility] [address] [place], [address] Glucose [Mass/Vol] 107 mg/dL High 74-106 [facility] Comment on above: Result Comment: Fast ing Glucose result from 100 to 125 mg/dL suggests IMPAIRED HOMEOSTASIS per A.D.A. criteria. Performed By: #### L 500.4050, L101.0450, L100.0100 #### [facility] [address] [place], [address] Potassium [Moles/Vol] 4.0 mmol/L Normal 3.5-5.1 [facility] Comment on above: Performed By: #### L 500.4050, L101.0450, L100.0100 #### [facility] [address] [place], [address] Sodium [Moles/Vol] 141 mmol/L Normal 136-145 [facility] Comment on above: Performed By: #### L 500.4050, L101.0450, L100.0100 #### [facility] [address] [place], [address] T PROT 7.0 g/dL Normal 6.4-8.2 [facility] Comment on above: Performed By: #### L 500.4050, L101.0450, L100.0100 #### [facility] [address] [place], [address] Urea nitrogen [Mass/Vol] 14 mg/dL Normal 7-18 [facility] Comment on above: Performed By: #### L 500.4050, L101.0450, L100.0100 #### [facility] [address] [place], [address] Internal Medicine Office Vis jo 07-02-2024 Internal Medicine Office Visit [facility] [address] [place] [address] [place] [address] OFFICE VISIT Date of Service: 07/02/24 MR#: [id number] Acct: [id number] Name: KATE SMITH Rep #: [id number] : 1955 Provider: JV magaña Age/Sex: 69/F Location: [facility] [place] Status: Signed Intake Vital Signs 06/16/24 13:45 07/02/24 14:26 Height 5 ft 5 in 5 ft 5 in Weight: 152 lb BMI 25.2 BP 138/64 H Blood Pressure Location Lt brachial Position Sitting Respiration 17 Pulse 83 Pulse Source Monitor Temp 97.8 F Temp Source Temporal Pulse Oximetry (%) 96 Oxygen Delivery Method room air Intake Visit Reasons: acute digestive issue Chief Complaint: acute digestive issue Is patient in pain?: Yes (4 in ABD ) Allergies No Known Allergies Allergy (Unverified 07/02/24 14:28) Medications ???Medication ???Instructions ???Recorded ???Confirmed ???Type metamucil PO 02/02/24 07/02/24 History lisinopril 20 mg tablet 20 mg PO DAILY #90 TABLETS 02/27/24 07/02/24 Rx omeprazole 20 mg capsule,delayed 20 mg PO DAILY 90 days #90 caps 05/10/24 07/02/24 Rx release trospium 20 mg tablet 20 mg PO BID #180 tabs 06/23/24 07/02/24 Rx Have you fallen in the past year?: No Nurse's Note: pt states that she was recently out of the [facility] in [facility] from [place] 13-. she states that upon her return she prepared a meal of crab legs in her home and woke up in the middle of the night with watery diarrhea. pt states that his happens about 8-10 x per day. she states that she has lost 20 lb. [facility] Medical History (Updated 07/02/24 @ 14:59 by JV Baker) Diarrhea Hyperkalemia PAC (premature atrial contraction) Sinusitis Health care maintenance Complex regional pain syndrome GERD (gastroesophageal reflux disease) OAB (overactive bladder) Grief reaction Chronic diarrhea Hypertension Surgical History Hx of cholecystectomy History of appendectomy History of ankle surgery Family History Sister , 09/10 cancer lung, brain No problems noted. Mother , 06/2023 bones,liver kidney ca No problems noted. Social History adopted: No current occupational status: unemployed pets and animals: Yes pets and animals: dog(s) sexually active: No Smoking Status: Never smoker alcohol intake: never substance use type: does not use caffeine: Yes (1-2) Type: coffee seatbelt use: always do you feel safe at home: Yes HPI HPI Chief Complaint: acute digestive issue Details: KATE SMITH, is a 69 F who presents to the office today for an acute visit for diarrhea. She reports she traveled to [facility] May 13-. She took medication for malaria but cannot recall the name, she was provided it by the health department. States she also took medication for typhoid fever. She cannot remember the medication names but the typhoid fever medication made her sick. She was feeling ok when she returned. She then ate crab legs from her freezer on 06/04/24 and the next day developed watery diarrhea. She reports she tried Imodium, which did help, but made her constipated so she stopped. She then developed watery diarrhea again, reporting 8-10 episodes per day that has continued until today. She denies abdominal pain, bloody stool, nausea, vomiting, fevers. She states she has lost 20 lbs. Reports appetite is fine but she is scared to eat. ROS Const Constitutional: No body ache, chills, excessive sweating, fatigue, fever(s), frequent falls, headache(s), snoring, weight change, sleep problems, abnormal sleep pattern or change in appetite Eyes Eyes: No blurry vision, change in vision, eye pain or Light sensitivity ENT ENT: No abnormal hearing, ear or mastoid pain, tinnitus, nasal congestion, headache(s), neck pain or sore throat Resp Respiratory: No cough, shortness of breath, snoring or wheezing Cardio Cardiology: No chest pain at rest, chest pain with exertion, excessive sweating, shortness of breath, dyspnea on exertion, lightheadedness, orthopnea or palpitations Gastro GI: No abdominal pain, change in bowel habits, constipation, cramping, diarrhea, nausea/dyspepsia or vomiting Genitourinary-Female : Positive for other (pt reports having 8-10 diarrhea episodes per day pure water ); No burning urination, painful urination, urinary incontinence, urinary frequency, abnormal vaginal bleeding or pelvic pain Musc Musculoskeletal: No abnormal gait, joint pain, back pain, limited range of motion, neck pain, numbness or tingling Skin Skin: No dry skin, redness, lesions, itchy eyes, rash or wounds Neuro Neurology: No abnormal gait, abnormal hearing, frequent falls, headache(s), me (more content not included)... Normal [facility] Absolute lymphocyte countOrd ered By: Kindra Jimenez on 02-02-2024 Lymphocytes Auto (Unsp spec) [#/Vol] 2.70 10*3/uL 0.83-4.51 [facility] Automated lymphocyte count a s percentage of total leukocytesOrdered By: Kindra Jimenez on 02-02-2024 Lymphocytes/100 WBC Auto (Unsp spec) 28.0 % 19-41 [facility] Basophil percentageOrdered B y: Kindra Jimenez on 02-02-2024 Basophils/100 WBC (Bld) 0.7 % 0-1 [facility] Bilirubin [Mass/Vol] 0.50 mg/dL 0.20-1.00 [facility] Comment on above: For patients on eltr ombopag therapy, use of Dimension [place] TBIL is not recommended. Chloride [Moles/Vol] 106 mmol/L 98-107 [facility] Cholesterol [Mass/Vol] 236 mg/dL <200 [facility] Comment on above: <200 mg/dL Desirable 200-240 mg/dL Borderline >240 mg/dL High Risk Eosinophils/100 WBC (Bld) 1.7 % 0-5 [facility] Glucose [Mass/Vol] 86 mg/dL 74-106 [facility] Hemoglobin (Bld) [Mass/Vol] 13.8 g/dL 12.0-15.0 [facility] Monocytes/100 WBC (Bld) 7.9 % 0-10 [facility] Neutrophils (Bld) [#/Vol] 5.9 10*3/uL 2.0-7.7 [facility] Neutrophils/100 WBC (Bld) 61.3 % 47-70 [facility] Potassium [Moles/Vol] 5.4 mmol/L 3.5-5.1 [facility] Protein [Mass/Vol] 7.6 g/dL 6.4-8.2 [facility] Sodium [Moles/Vol] 138 mmol/L 136-145 [facility] Triglyceride [Mass/Vol] 115 mg/dL <199 [facility] Comment on above: The drugs N-Acetylcy steine and Metamizole may falsely depress this assay.Serum Triglycerides Reference Interval Normal <150 mg/dL Borderline high 150 - 199 mg/dL High 200 - 499 mg/dL Very High > or = 500 mg/dL WBC (Bld) [#/Vol] 9.6 10*3/uL 4.4-11.0 [facility] Determination of erythrocyte mean corpuscular volume (MCV)Ordered By: brysierra citykarime Jimeenz on 02-02-2024 MCV (RBC) [Entitic vol] 95.1 fL 81-99 [facility] Erythrocyte distribution wid th ratioOrdered By: [facility] on 02-02-2024 Erythrocyte distribution width (RBC) [Ratio] 12.6 % 11.6-14.6 [facility] Erythrocyte distribution wid th standard deviationOrdered By: [facility] on 02-02-2024 Erythrocyte distribution width (RBC) [Entitic vol] 44.0 fL 35.1-43.9 [facility] Hematocrit Auto (Bld) [Volum e fraction]Ordered By: [facility] Luisguido on 02-02-2024 Hematocrit (Bld) [Volume fraction] 42.6 % 37-47 [facility] Immature granulocytes/100 WB C Auto (Bld)Ordered By: [facility] on 02-02-2024 Immature granulocytes/100 WBC (Bld) 0.400 % 0.0-0.9 [facility] Comment on above: IG% - Immature Granu locytes (promyelocytes, myelocytes and metamyelocytes) > 1% indicates that a LEFT SHIFT is Present. Laboratory - Chemistry and C hemistry - challengeOrdered By: [facility] on 02-02-2024 Albumin/Globulin [Mass ratio] 1.1 {ratio} 0.9-2.4 [facility] ALP [Catalytic activity/Vol] 121 U/L 45-117 [facility] ALT [Catalytic activity/Vol] 34 U/L 13-56 [facility] Cholesterol in HDL [Mass/Vol] 74 mg/dL >40 [facility] Comment on above: The drugs N-Acetylcy steine and Metamizole may falsely depress this assay. Reference Range HDL <40 mg/dL Low HDL Cholesterol HDL >or= 60 mg/dL High HDL Cholesterol Cholesterol in LDL [Mass/Vol] 139 mg/dL 0-130 [facility] CO2 [Moles/Vol] 29.0 mmol/L 21.0-32.0 [facility] Globulin (S) [Mass/Vol] 3.6 g/dL 2.2-4.2 [facility] Urea nitrogen/Creatinine [Mass ratio] 19.1 mg/mg 10-20 [facility] Laboratory - Hematology and Cell countsOrdered By: Kindra Jimenez on 02-02-2024 MCH (RBC) [Entitic mass] 30.8 pg 27.0-32.0 [facility] MCHC (RBC) [Mass/Vol] 32.4 g/dL 32-36 [facility] Nucleated RBC/100 WBC (Bld) [Ratio] 0 % 0-5 [facility] Platelet mean volume (Bld) [Entitic vol] 11.7 fL 6.2-12.0 [facility] Platelets (Bld) [#/Vol] 247 10*3/uL 150-450 [facility] No Panel InformationOrdered By: Kindra Jimenez on 02-02-2024 Estimated GFR (MDRD) Amer 81 mL/min >60 [facility] Comment on above: GFR Calc Estimated GFR (MDRD) Non-Af Amer 67 mL/min >60 [facility] Comment on above: Non- GFR Calc VLDL Cholesterol 23 mg/dL 5-40 [facility] RBC Auto (Bld) [#/Vol]Ordere d By: Kindra Jimenez on 02-02-2024 RBC (Bld) [#/Vol] 4.48 10*6/uL 4.2-5.4 [facility] Serum or plasma calcium dalila urement (mass/volume)Ordered By: Kindra Jimenez on 02-02-2024 Calcium [Mass/Vol] 9.5 mg/dL 8.5-10.1 [facility] Serum or plasma creatinine m easurement (mass/volume)Ordered By: Kindra Jimenez on 02-02-2024 Creatinine [Mass/Vol] 0.89 mg/dL 0.55-1.02 [facility] Comment on above: The validity of the calculated GFR & GFRAA in patients over 70 years has not been determined. Clinical correlation is essential. Serum or plasma thyroid stim ulating hormone (TSH) measurement (units/volume)Ordered By: Kindra Jimenez on 02-02-2024 TSH Qn 2.19 uIU/mL 0.358-3.74 [facility] Serum or plasma urea nitroge n measurement (mass/volume)Ordered By: Kindra Jimenez on 02-02-2024 Urea nitrogen [Mass/Vol] 17 mg/dL 7-18 [facility] Thin prep Papanicolaou smear with manual screeningOrdered By: Kindra Jimenez on 02-02-2024 Thin prep Papanicolaou smear with manual screening 4.0 g/dL 3.2-5.0 [facility] Thin prep Papanicolaou smear with manual screening 24 U/L 15-37 [facility] Thin prep Papanicolaou smear with manual screening 3 5-15 [facility] Thin prep Papanicolaou smear with manual screening 1.03 ng/dL 0.76-1.46 [facility] Vital Signs Date Time Vital Sign Value Performing Clinician Marciai gabi 06-10-2025 14:32-0400 Body height 162.[address] Kindra Jimenez MD Work Phone: [facility] 06-10-2025 14:32-0400 Body mass index (BMI) [Ratio] 27.1 kg/m2 Dr. Kindra Jimenez MD Work Phone: [facility] 06-10-2025 14:32-0400 Body temperature 97.5 [degF] Dr. Kindra Jimenez MD Work Phone: [facility] 06-10-2025 14:32-0400 Body weight 71.[address] Kindra Jimenez MD Work Phone: [facility] 06-10-2025 14:32-0400 Diastolic blood pressure 58 mm[Hg] Dr. Kindra Jimenez MD Work Phone: [facility] 06-10-2025 14:32-0400 Heart rate 68 /min Dr. Kindra Jimenez MD Work Phone: [facility] 06-10-2025 14:32-0400 Respiratory rate 16 /min Dr. Kindra Jimenez MD Work Phone: [facility] 06-10-2025 14:32-0400 SaO2% (BldA) [Mass fraction] 98 % Dr. Kindra Jimenez MD Work Phone: [facility] 06-10-2025 14:32-0400 Systolic blood pressure 118 mm[Hg] Dr. Kindra Jimenez MD Work Phone: [facility] 02-24-2025 14:02-0400 Body height 162.[address] Kindra Jimenez MD Work Phone: [facility] 02-24-2025 14:02-0400 Body mass index (BMI) [Ratio] 26.9 kg/m2 Dr. Kindra Jimenez MD Work Phone: [facility] 02-24-2025 14:02-0400 Body temperature 97.8 [degF] Dr. Kindra Jimenez MD Work Phone: [facility] 02-24-2025 14:02-0400 Body weight 71.[address] Kindra Jimenez MD Work Phone: [facility] 02-24-2025 14:02-0400 Diastolic blood pressure 66 mm[Hg] Dr. Kindra Jimenez MD Work Phone: [facility] 02-24-2025 14:02-0400 Heart rate 94 /min Dr. Kindra Jimenez MD Work Phone: [facility] 02-24-2025 14:02-0400 Respiratory rate 18 /min Dr. Kindra Jimenez MD Work Phone: [facility] 02-24-2025 14:02-0400 SaO2% (BldA) [Mass fraction] 96 % Dr. Kindra Jimenez MD Work Phone: [facility] 02-24-2025 14:02-0400 Systolic blood pressure 118 mm[Hg] Dr. Kindra Jimenez MD Work Phone: [facility] 10-27-2024 15:14-0500 Body mass index (BMI) [Ratio] 25.7 kg/m2 Dr. Kindra Jimenez MD Work Phone: [facility] 10-27-2024 15:14-0500 Body temperature 97.5 [degF] Dr. Kindra Jimenez MD Work Phone: [facility] 10-27-2024 15:14-0500 Body weight 70.[address] Kindra Jimenez MD Work Phone: [facility] 10-27-2024 15:14-0500 Diastolic blood pressure 82 mm[Hg] Dr. Kindra Jimenez MD Work Phone: [facility] 10-27-2024 15:14-0500 Heart rate 67 /min Dr. Kindra Jimenez MD Work Phone: [facility] 10-27-2024 15:14-0500 Respiratory rate 17 /min Dr. Kindra Jimenez MD Work Phone: [facility] 10-27-2024 15:14-0500 SaO2% (BldA) [Mass fraction] 98 % Dr. Kindra Jimenez MD Work Phone: [facility] 10-27-2024 15:14-0500 Systolic blood pressure 114 mm[Hg] Dr. Kindra Jimenez MD Work Phone: [facility] 02-02-2024 13:06-0400 Body height 165.[address] Kindra Jimenez Work Phone: [facility] 02-02-2024 13:06-0400 Body mass index (BMI) [Ratio] 28.6 kg/m2 Dr. Kindra Jimenez Work Phone: [facility] 02-02-2024 13:06-0400 Body temperature 98.3 [degF] Dr. Kindra Jimenez Work Phone: [facility] 02-02-2024 13:06-0400 Body weight 78.[address] Kindra Jimenez Work Phone: [facility] 02-02-2024 13:06-0400 Diastolic blood pressure 82 mm[Hg] Dr. Kindra Jimenez Work Phone: [facility] 02-02-2024 13:06-0400 Heart rate 80 /min Dr. Kindra Jimenez Work Phone: [facility] 02-02-2024 13:06-0400 Respiratory rate 17 /min Dr. Kindra Jimenez Work Phone: [facility] 02-02-2024 13:06-0400 SaO2% (BldA) [Mass fraction] 96 % Dr. Kindra Jimenez Work Phone: [facility] 02-02-2024 13:06-0400 Systolic blood pressure 138 mm[Hg] Dr. Kindra Jimenez Work Phone: [facility] Encounters Encounter Date Encounter Type Care Provider Facility Start: 06-10-[address] Kindra Jimenez MD -Laboratory Specimen Work Phone: Start: 06-10-2025 End: 06-10-[address] Kindra Jimenez MD Work Phone: -[facility] Start: 06-10-2025 End: 06-10-[address] Kindra Jimenez MD -[facility] Work Phone: Start: 02-24-2025 End: 02-24-[address] Kindra Jimenez MD -[facility] Work Phone: Start: 02-24-2025 End: 02-24-[address] Kindra Jimenez MD Work Phone: [facility] Work Phone: Start: 10-27-2024 End: 10-27-[address] Kindra Jimenez MD -[facility] Work Phone: Start: 10-27-2024 End: 10-27-2024 ambulatory [facility] Facility:[facility] [place] Start: 07-29-2024 End: 07-30-2024 ambulatory [facility] Facility:[facility] Start: 07-29-2024 End: 07-29-2024 ambulatory [facility] Facility:[facility] Start: 07-02-2024 End: 07-02-2024 ambulatory [facility] Facility:[facility] Start: 07-02-2024 End: 07-02-2024 [facility] Start: 06-28-2024 End: 06-28-2024 ambulatory [facility] Facility:[facility] Start: 02-02-2024 End: 02-02-[address] Kindra Jimenez Work Phone: [facility] Work Phone: Start: 02-02-2024 End: 02-02-[address] Kindra Jimenez Work Phone: [facility]atory, [facility] Start: 02-02-2024 End: 02-02-[address] Kindra Jimenez Work Phone: [facility] Work Phone: Start: 07-10-[address] Kindra Jimenez Work Phone: [facility] Plan of Treatment Date Care Activity Detail Author Start: 02-02-2024 Evaluation of diagno stic study results [facility] Bilirubin measurement, urine [facility] Blood chemistry [facility] CBC W Auto Different ial panel - Blood [facility] Comprehensive metabo lic 1999 panel - Serum or Plasma [facility] Hemoglobin [Presence] in Urine [facility] Lipid 1995 panel - S jose or Plasma [facility] Measurement of keton es in urine using dipstick [facility] Microscopic urinalysis [facility] Organism count, micr oscopic method [facility] pH of Urine [facility] Specific gravity of Urine [facility] Urinalysis complete panel - Urine [facility] Urine dipstick for glucose [facility] Urine dipstick for l eukocyte esterase [facility] Urine dipstick for nitrite [facility] Urine dipstick for protein [facility] Urine examination [facility] Urine microscopy: ep ithelial cells [facility] Urine microscopy: red cells [facility] Urobilinogen [Presence] in Urine [facility] White blood cell count [facility] XR Hip GE 2 Views [facility] XR Spine Lumbar and Sacrum GE 4 Views [facility] Payers Date Payer Category Payer Self-pay 2024 Unknown [id number] Unknown [id number] 2.16.8 [id number] Unknown [id number] 2.16.8 [id number] Unknown [id number] 2.16.8 [id number] Unknown [id number] 2.16.8 [id number] Unknown [id number] 2.16.8 [id number] Unknown [id number] 2.16.8 [id number] Unknown [id number] 2.16.8 [id number] Unknown [id number] 2.16.8 [id number] Unknown [id number] 2.16.8 [id number] Social History Date Type Detail Facility Start: 10-09-2023 Tobacco smoking stat [facility] Unknown if ever smoked [facility] Start: 1955 Sex Assigned At Female [facility] Start: 06-16-2024 Tobacco smoking stat [facility] Never smoked tobacco (finding) [facility] Evaluation note 02-24-2025 Note Date & Type Note Facility 02-24-2025 Evaluation note Diagnosis Onset Date Resolution GERD (gastroesophageal reflux disease) chronic February 24, 2025 1 :53pm Hypertension chronic February 24 1:53pm OAB (overactive bladder) chronic February 24, 2025 1 :53pm Chronic back pain chronic June 10, 2025 2:27pm OAB (overactive bladder) chronic June 10 2:27pm Right groin pain chronic May 142024 2:27pm [place] Work Phone: Evaluation note 10-27-2024 Note Date & Type Note Facility 10-27-2024 Evaluation note Diagnosis Onset Date Resolution GERD (gastroesophageal reflux disease) chronic October 27 3:07pm Hypertension chronic October 3:07pm [place] Work Phone: Evaluation note Note Date & Type Note Facility Evaluation note Diagnosis Onset Date PAC (premature atrial contraction) acute Sinusitis acute GERD (gastroesophageal reflux disease) chronic Hypertension chronic OAB (overactive bladder) chr onic [facility] Work Phone: Reason for referral (narrative) Note Date & Type Note Facility Reason for referral (narrative) No reason for referral information available [place] [email or web address] Work Phone: Chief Complaint and Reason for Visit Chief Complaint 3 M FU Reason for Visit PAC (premature atria l contraction) Sinusitis GERD (gastroesophageal reflux disease) Hypertension OAB (overactive bladder) Chief Complaint Admit Date 3 M FU October 27, 2024 3 :07pm 4 M FU February 24, 2025 1:53p m Reason for Visit Admit Date GERD (gastroesophageal reflux disease) J anuary 2024 3:07pm Hypertension October 27, 2024 3 :07pm Chief Complaint Admit Date 4 M FU February 24, 2025 1:53p m Back pain, spreading to legs May 2:27pm Dorsalgia, unspecified June 10, 2025 3:44pm Reason for Visit Admit Date GERD (gastroesophageal reflux disease) M ay 2024 1:53pm Hypertension February 24, 2025 1:53p m OAB (overactive bladder) February 24, 2025 1:53pm Chronic back pain June 10, 2025 2: 27pm OAB (overactive bladder) June 10 2:27pm Right groin pain June 10, 2025 2: 27pm Summary Purpose Family History No Family History Records Found Advance Directives No Advanced Directives Records Found Additional Source Comments Care Teams (unrecognized sec tion and content) Team Status: Active Member Role Status Dates Dr. Kindra Jimenez MD Primary Care Provider Active Team Status: Inactive Member Role Status Dates Dr. Kindra Jimenez MD Primary Care P sally, Attending Provider, Referring Provider Active Team Status: Inactive Member Role Status Dates Dr. Kindra Jimenez MD Primary Care Provider, Atten ding Provider Active Team Status: Inactive Member Role Status Dates Dr. Kindra Jimenez MD Primary Care Provider Active Start: October 27, 2024 End: October 27, 2024 Dr. Kindra Jimenez MD Attending Provider Active Start: October 27, 2024 End: October 27, 2024 Dr. Kindra Jimenez MD Referring Provider Active Start: October 27, 2024 End: October 27, 2024 Team Status: Inactive Member Role Status Dates Dr. Kindra Jimenez MD Primary Care Provider Active Start: February 24, 2025 End: February 24, 2025 Dr. Kindra Jimenez MD Attending Provider Active Start: February 24, 2025 End: February 24, 2025 Dr. Kindra Jimenez MD Referring Provider Active Start: February 24, 2025 End: February 24, 2025 Team Status: Active Member Role/Relationship Status Dates Dr. Kindra Jiemnez MD Primary Care Provider Active Team Status: Inactive Member Role/Relationship Status Dates Dr. Kindra Jimenez MD Primary Care Provider Active Start: February 24, 2025 End: February 24, 2025 Dr. Kindra Jimenez MD Attending Provider Active Start: February 24, 2025 End: February 24, 2025 Dr. Kindra Jimenez MD Referring Provider Active Start: February 24, 2025 End: February 24, 2025 Team Status: Inactive Member Role/Relationship Status Dates Dr. Kindra Jimenez MD Primary Care Provider Active Start: June 10, 2025 End: June 10, 2025 Dr. Kindra Jimenez MD Attending Provider Active Start: June 10, 2025 End: June 10, 2025 Dr. Kindra Jimenez MD Referring Provider Active Start: June 10, 2025 End: June 10, 2025 Team Status: Active Member Role/Relationship Status Dates Dr. Kindra Jimenez MD Primary Care Provider Active Start: June 10, 2025 Dr. Kindra Jimenez MD Attending Provider Active Start: June 10, 2025 Dr. Kindra Jimenez MD Referring Provider Active Start: June 10, 2025 Goals (unrecognized section and content) Goals may be documented in a n alternate sectionGoals may be documented in an alternate sectionGoals may be documented in an alternate section INFORMATION SOURCE (unrecogn ized section and content) DATE CREATED AUTHOR 02/25/2025 [facility] FOR RECORDS PERTAINING TO PATIENTS WHO ARE OR HAVE BEEN ENROLLED IN A CHEMICAL DEPENDENCY/SUBSTANCEABUSE PROGRAM, SOME INFORMATION MAY BE OMITTED. This clinical summary was aggregated from multiple sources. Caution should be exercised in using it in the provision of clinical care. This summary normalizes information from multiple sources, and as a consequence, information in this document may materially change the coding, format and clinical context of patient data. In addition, data may be omitted in some cases. CLINICAL DECISIONS SHOULD BE BASED ON THE PRIMARY CLINICAL RECORDS. [facility] [employer] [facility] provides no warranty or guarantee of the accuracy or completeness of information in this document.
== END | disposition home or self-care (01) ==
LOC: LABSPEC 15:48
PROVIDERS: PCP Internal Medicine; Referring Provider Internal Medicine; Visit Provider Internal Medicine
DX: M54.9 Dorsalgia, unspecified (principal); G89.29 Other chronic pain
CPT/HCPCS: 81001; 87086

== ENCOUNTER → 2025-06-15 | Outpatient (CLI) | payer BC, SELFPAY ==
--- NOTE | 2025-06-15 12:22 | RAD_ITS ---
PROCEDURE: L/S SPINE MIN 4 VIEWS 06/15/2025 REASON FOR EXAM: RADICULOPATHY. Back and hip pain for 4 years, getting worse. No known injury. TECHNIQUE: Procedure Code: RADSPLS Modality: DX Procedure: L/S SPINE MIN 4 VIEWS COMPARISON: None. FINDINGS: BONES: Transitional anatomy at the lumbosacral junction with lumbarization of S1, for the purpose of this interpretation. No fracture or focal osseous lesion. Anatomic spinal alignment. DISC/DEGENERATIVE CHANGES: Disc space narrowing and small vertebral endplate osteophytes throughout. Multilevel facet arthropathy. SOFT TISSUES: The aorta is mildly calcified. RAD/L/S Spine Min 4 Views IMPRESSION: 1. No acute osseous abnormality. 2. Spondylosis and degenerative disc disease. Reading Location: [id number]
--- NOTE | 2025-06-15 12:22 | RAD_ITS ---
PROCEDURE: HIP MIN 2 VIEWS (PORTABLE) 06/15/2025 REASON FOR EXAM: RIGHT GROIN PAIN TECHNIQUE: Procedure Code: RADH_P Modality: DX Procedure: HIP MIN 2 VIEWS (PORTABLE) Laterality: Right hip COMPARISON: None FINDINGS: Bones: Degenerative changes and sclerosis of the symphysis pubis. Joints: Moderate degree of osteoarthritis involving both hip joints. Soft tissues: Soft tissues are unremarkable. Other: RAD/Hip Min 2 Views (Portable) IMPRESSION: Moderate degree of osteoarthritis involving both hip joints as well as degenera tive changes and sclerosis of the symphysis pubis. Reading Location: [place] [id number]
== END | disposition home or self-care (01) ==
LOC: RAD 12:21
PROVIDERS: PCP Internal Medicine; Referring Provider Internal Medicine; Visit Provider Internal Medicine
DX: M54.17 Radiculopathy, lumbosacral region (principal); G89.29 Other chronic pain; R10.31 Right lower quadrant pain
CPT/HCPCS: 72110; 73502

== ENCOUNTER → 2025-08-29 | Outpatient (CLI) | payer BC, SELFPAY ==
[2025-08-29 17:38] LABS: Hematocrit 40.4 % (37-47); Hemoglobin 12.9 g/dL (12.0-15.0); Immature Granulocytes Count 0.020 X10^3/uL (0.0-0.0); Mean Corp Hgb Conc 31.9 g/dL (32-36); Mean Corpuscular Volume 96.0 fL (81-99); Mean Platelet Vol. 12.3 fl (6.2-12.0); NRBC Flagged by Analyzer 0 % (0-5); Platelet Count 209 K/mm3 (150-450); RBC Distribution Width CV 12.6 % (11.6-14.6); RBC Distribution Width SD 44.9 fl (35.1-43.9); Red Blood Count 4.21 M/mm3 (4.2-5.4); White Blood Count 9.3 K/mm3 (4.4-11.0)
[2025-08-29 18:17] LABS: AST(SGOT) 24 U/L (<=31); Alanine Aminotransfer ALT/SGPT 18 U/L (<=34); Albumin, Serum 4.4 g/dL (3.4-4.8); Alkaline Phosphatase 100 U/L (35-104); Anion Gap 12 (5-15); BUN 22 mg/dL (4-19); BUN/Creat Ratio 19.9 RATIO (10-20); Calcium,Total 9.5 mg/dL (7.6-11.0); Carbon Dioxide 24.8 mmol/L (21.0-32.0); Chloride 104 mmol/L (98-108); Cholesterol 193 mg/dL (<=200); Globulin 2.9 g/dL (2.2-4.2); Glucose 116 mg/dL (70-99); Low Density Lipoprotein Calc. 110 mg/dL; Magnesium 2.1 mg/dL (1.5-2.2); Potassium 4.5 mmol/L (3.3-5.1); Triglycerides 92 mg/dL; Very Low Density Lipoprotein 18 mg/dL (5-40); cholesterol:hdl ratio screen 2.90
== END | disposition home or self-care (01) ==
LOC: MTLAB 15:28
PROVIDERS: PCP Internal Medicine; Referring Provider Internal Medicine; Visit Provider Internal Medicine
DX: I10 Essential (primary) hypertension (principal); I49.1 Atrial premature depolarization
CPT/HCPCS: 36415; 80053; 80061; 83735; 84439; 84443; 85025

== ENCOUNTER → 2025-09-27 | Outpatient (CLI) | payer BC, SELFPAY ==
--- NOTE | 2025-09-27 10:36 | STE_ITS ---
Reason For Study Reason For Study: ARRHYTHMIA-OTHER Stress Results Protocol: TAY Maximum Predicted HR: 150 bpm Target HR: 128 bpm % Maximum Predicted HR: 101 % DurationHeart Rate Stage (mm:ss) (bpm) BP Comment BASELINE 78 134/72 STAGE 1 3:00 127 172/72NO CHEST PAIN STAGE 2 3:00 146 174/78 STAGE 3 0:30 151 / RECOVERY 85 140/64 Stress Duration: 6:30 mm:ss Maximum Stress HR: 151 bpm Baseline Echocardiogram Findings Stress Echo Wall motion Data Resting WM Intermediate WM Stress WM ECHO/Stress Test Echo w/o Contrast Interpretation Summary Exercise stress echocardiogram. 70-year-old lady with a history of cardiac dysrhythmia. Resting KG demonstrates normal sinus rhythm with a rate of 76 bpm normal interv als noted resting blood pressure is 134/72 mmHg. The patient exercised according to regular Tay protocol for a to carlene duration of 6-1/2 minutes. The maximum heart rate attained was in an 55 bpm which was 103% of maximum predicte d heart rate the maximum workload was 8.4 metabolic equivalents. At rest there were no ST or T wave changes noted suggest ischemia and at peak exercise no ST or T wave changes were noted to suggest ischemia. No arrhythmias were noted the test was terminated due to target heart rate achieved the peak blood pressure is 174/78 mmHg which was a normal blood pressu re response to exercise and the rate- pressure product was 25,000. Stress echocardiogram. The resting echocardiogram demonstrated an ejection frac tion of 60% with no wall motion abnormalities noted valvular structures were normal. At peak exercise there was thickening of all iqbal contraction of low ventricular cavity size peaking of ejection fraction at approximately 70%. No wall motion abnormalities were noted. Conclusion: Exercise stress echo with no EKG or echocardiographic evidence for ischemia at a moderate workload. Ordering Physician: Kindra Jimenez Referring Physician: Kindra Jimenez Performed By: Mechelle Perez RDCS
== END | disposition home or self-care (01) ==
LOC: CVS 10:35
PROVIDERS: PCP Internal Medicine; Referring Provider Internal Medicine; Visit Provider Internal Medicine
DX: I49.1 Atrial premature depolarization (principal)
CPT/HCPCS: 93017; 93350